=== PATIENT | male | born 1990 | race Caucasian/White ===

== ENCOUNTER 2019-12-21 18:54 | Emergency (ER) | payer OTHER ==
[2019-12-21 19:03] VITALS: RESP 18; TEMP 98
[2019-12-21] MEDS ORDERED: KETOROLAC 60 MG/2 ML VIAL IM STA (19:10)
--- NOTE | 2019-12-21 19:26 | XR ---
EXAMINATION TYPE: XR knee 4V RT DATE OF EXAM: 12/21/2019 COMPARISON: NONE HISTORY: Knee pain TECHNIQUE: 4 views FINDINGS: I see no fracture nor dislocation. Joint spaces are normal. There is no sign of knee joint effusion. IMPRESSION: Negative right knee exam.
--- NOTE | 2019-12-21 19:31 | ED ---
General Adult HPI - General Chief complaint: Extremity Injury, Lower Stated complaint: knee pain Time Seen by Provider: 12/21/19 19:04 Source: patient, RN notes reviewed, old records reviewed Mode of arrival: ambulatory Limitations: no limitations - History of Present Illness Initial comments: 29-year-old male patient presents to the chief complaint right knee injury. Patient reports that earlier today he was wrestling with friends. Patient reports that he bent down and went to strip picker one of his friends off the ground when he felt a pop in the medial aspect of his right knee. Patient currently has pain with ambulation. Reports that he did fall to the ground however did not hit his head or lose consciousness. Chief complaint is right knee pain in the medial aspect. Denies any other complaints. Denies any coronavirus contacts cough congestion fever or any other symptoms. Systemic: Pt denies fatigue, fever/chills, rash. Pt denies weakness, night sweats, weight loss. Neuro: Pt denies headache, visual disturbances, syncope or pre-syncope. HEENT: Pt denies ocular discharge or irritation, otalgia, rhinorrhea, pharyngitis or notable lymphadenopathy. Cardiopulmonary: Pt denies chest pain, SOB, heart palpitations, dyspnea on exertion. Abdominal/GI: Pt denies abdominal pain, n/v/d. : Pt denies dysuria, burning w/ urination, frequency/urgency. Denies new onset urinary or bowel incontinence. Neuro: Pt denies new onset weakness, paresthesias. - Related Data Previous Rx's Medication Instructions Recorded Ibuprofen [Motrin] 800 mg PO Q6HR PRN #20 tab 08/03/16 Allergies Allergy/AdvReac Type Severity Reaction Status Date / Time codeine AdvReac Nausea & Verified 12/21/19 19:03 Vomiting tramadol AdvReac Nausea & Verified 12/21/19 19:03 Vomiting Review of Systems ROS Statement: Those systems with pertinent positive or pertinent negative responses have been documented in the HPI. ROS Other: All systems not noted in ROS Statement are negative. 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 HEENT: NC/AT, trachea midline, neck supple, no lymphadenopathy. Posterior pharynx non erythematous, without exudates. External ears appear normal, without discharge. Mucous membranes moist. Eyes PERRLA, EOM intact. There is no scleral icterus. No pallor noted. Cardiopulmonary: RRR, no murmurs, rubs or gallops, no JVD noted. Lungs CTAB in anterior and posterior mitchell. No peripheral edema. Abdominal exam: Abdomen soft and non-distended. Abdomen non-tender to palpation in all 4 quadrants. Bowel sounds active in LLQ. No hepatosplenomegaly. No ecchymosis Neuro: CN II-XII grossly intact. No nuchal rigidity. No raccon eyes, no beltran sign, no hemotympanum. No cervical spinal tenderness. MSK: aspect of right knee mildly tender to palpation. No skin changes. Passive range of motion is intact. Neurovascularly intact. No other areas of tenderness on upper or lower extremities. No posterior calf tenderness bilaterally, homans sign negative bilaterally. Posterior tibialis and radial pulse +2 bilaterally. Sensation intact in upper and lower extremities. Limitations: no limitations Course Vital Signs 12/21/19 19:00 Temperature 98.0 F Pulse Rate 108 H Respiratory 18 Rate Blood Pressure 114/74 O2 Sat by Pulse 98 Oximetry Medical Decision Making - Medical Decision Making 29-year-old male patient with seizure evaluation of right knee sprain. Patient felt a pop in his knee while roughhousing with friends. Patient vital signs are stable, afebrile. Physical exam did display medial aspect right knee mildly tender to palpation. Has range of motion is intact. Neurovascularly intact. Plain film did not display acute process. Patient will be placed in knee immobilizer. He'll be advised not to bear weight and right lower extremity. We'll follow up with orthopedic consult tomorrow. Return to ER if condition wor sens. Case discussed with Dr. Lara. Disposition Clinical Impression: Right knee sprain Disposition: HOME SELF-CARE Instructions (If sedation given, give patient instructions): Knee Sprain (ED) Additional Instructions: Continue to wear knee immobilizer. Use crutches do not bear on right lower extremity. Follow with orthopedic consult tomorrow. Follow up with PCP tomorrow. Return to ER if condition worsens. Is patient prescribed a controlled substance at d/c from ED?: No Referrals: None,Stated [Primary Care Provider] - 1-2 days Med Pereira MD [STAFF PHYSICIAN] - 1-2 days
[2019-12-21 19:51] VITALS: BP 118/70; PULSE 96
== END 2019-12-21 19:51 | disposition home or self-care (01) ==
LOC: EC 18:54
DX: S83.91XA Sprain of unspecified site of right knee, initial encounter (principal); F17.200 Nicotine dependence, unspecified, uncomplicated; Z88.5 Allergy status to narcotic agent; Z53.29 Procedure and treatment not carried out because of patient's decision for other reasons; Y93.72 Activity, wrestling
CPT/HCPCS: 73564; 99284; L1830

== ENCOUNTER 2022-03-24 21:27 | Emergency (ER) | payer OTHER ==
[2022-03-24 22:32] VITALS: BP 146/92; PULSE 89; RESP 18; TEMP 98.1
--- NOTE | 2022-03-24 22:35 | ED ---
Lower Extremity Injury HPI - General Stated Complaint: R leg/possible torn ACL Time Seen by Provider: 03/24/22 21:44 Source: patient, RN notes reviewed Mode of arrival: ambulatory - History of Present Illness Initial Comments: This is a pleasant 31-year-old male with a history of asthma and previous history of right ACL tear. He jumped on her back of a pickup truck and landed on his left leg initially but then put his right foot down and twisted his right knee. He ended up landing on his right knee. Patient complaining of pain to the right knee which is exacerbated by movement and attempted ambulation. Does radiate proximally somewhat. Denies any other injury.. Pain intensity is 6-7 out of 10 intensity, alleviated somewhat by position and rest. Exacerbated by movement No headache, no fever or chills, no changes in vision or hearing, no sore throat or difficulty with speech, no neck pain, no chest pain or shortness of breath, no abdominal pain, no nausea or vomiting, no changes in urination or bowel movements, no numbness or tingling, no skin rashes or lesions. MD Complaint: knee injury - Related Data Previous Rx's Medication Instructions Recorded Ibuprofen [Motrin] 800 mg PO Q6HR PRN #20 tab 08/03/16 Allergies Allergy/AdvReac Type Severity Reaction Status Date / Time codeine AdvReac Nausea & Verified 03/24/22 22:27 Vomiting tramadol AdvReac Nausea & Verified 03/24/22 22:27 Vomiting Review of Systems ROS Statement: Those systems with pertinent positive or pertinent negative responses have been documented in the HPI. ROS Other: All systems not noted in ROS Statement are negative. 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 Absent: scleral icterus, conjunctival injection, periorbital swelling ENT exam: Present: normal exam, mucous membranes moist Neck exam: Present: normal inspection. Absent: tenderness, meningismus, lymphadenopathy Respiratory exam: Present: normal lung sounds bilaterally. Absent: respiratory distress, wheezes, rales, rhonchi, stridor, decreased breath sounds, prolonged expiratory Cardiovascular Exam: Present: regular rate, normal rhythm, normal heart sounds. Absent: systolic murmur, diastolic murmur, rubs, gallop, clicks GI/Abdominal exam: Present: soft. Absent: distended, tenderness, guarding, rebound, rigid Extremities exam: Present: full ROM, tenderness, normal capillary refill, other (Patient does have some laxity with regards to ACL on the right.). Absent: pedal edema, joint swelling, calf tenderness Right Hip exam: Present: normal inspection, full ROM. Absent: tenderness, swelling, abrasion Upper Leg exam: Present: normal inspection. Absent: tenderness, swelling Knee exam: Present: tenderness, swelling. Absent: full ROM, abrasion, laceration, ecchymosis, deformity, crepitus, dislocation, erythema, effusion, pain w/ pronation/supination, posterior draw sign, pain/laxity with valgus, pain/laxity with varus, full knee extension Lower Leg exam: Present: normal inspection. Absent: tenderness, swelling, abrasion Ankle exam: Present: normal inspection, full ROM. Absent: tenderness, swelling Foot/Toe exam: Present: normal inspection, full ROM. Absent: tenderness, swelling Back exam: Present: normal inspection Neurological exam: Present: alert, oriented X3, CN II-XII intact Psychiatric exam: Present: normal affect, normal mood Skin exam: Present: warm, dry, intact, normal color. Absent: rash Course Vital Signs 03/24/22 22:28 Temperature 98.1 F Pulse Rate 89 Respiratory 18 Rate Blood Pressure 146/92 O2 Sat by Pulse 98 Oximetry Medical Decision Making - Medical Decision Making Condition presents with isolated right knee injury. Patient does have some laxity ascertained with anterior drawer test on the right. There is no bony pathology as read by radiology. These films myself. Was applied. Distal neurovascular status intact both pre-and post-application. We'll have the patient follow-up with orthopedics. Anti-inflammatory medication and acetaminophen until then. Patient was told to return to the ER for any signs or symptoms worsen. Told to return immediately if any other problems arise. All questions answered. Treatment plan discussed. Patient in agreement Every effort has been made to ensure accuracy of this dictation. However, due to the limitations of electronic medical records and dictation devices, errors in charting still occur. Driver Education Instructor, Dr. Cantu - Radiology Data Radiology results: report reviewed, image reviewed Disposition Clinical Impression: Internal derangement of right knee Disposition: HOME SELF-CARE Condition: Stable Instructions (If sedation given, give patient instructions): Knee Sprain (ED) Additional Instructions: With a knee immobilizer as directed. Follow-up with orthopedics. Follow-up with your regular physician as directed. Return to the ER immediately if any symptoms worsen, new symptoms arise, or any other problems develop. Is patient prescribed a controlled substance at d/c from ED?: No Referrals: León Villanueva MD [Medical Doctor] - 03/28/22 Time of Disposition: 23:16
--- NOTE | 2022-03-24 22:55 | XR ---
EXAMINATION TYPE: XR knee complete RT DATE OF EXAM: 03/24/2022 COMPARISON: NONE HISTORY: Pain TECHNIQUE: 3 views FINDINGS: There is no fracture nor dislocation. Joint spaces are normal. No pathologic calcifications . No sign of joint effusion. IMPRESSION: Negative right knee exam. No fracture.
[2022-03-24] MEDS ORDERED: IBUPROFEN 600 MG STARTER PACK 4 TAB BTL PO STA (23:14)
[2022-03-24] MEDS ORDERED: ACETAMINOPHEN TAB 500 MG TAB PO STA (23:15)
== END 2022-03-24 23:47 | disposition home or self-care (01) ==
LOC: EC 21:27
DX: M23.91 Unspecified internal derangement of right knee (principal); J45.909 Unspecified asthma, uncomplicated; Z88.5 Allergy status to narcotic agent; Z88.6 Allergy status to analgesic agent; X50.1XXA Overexertion from prolonged static or awkward postures, initial encounter; Y93.39 Activity, other involving climbing, rappelling and jumping off
CPT/HCPCS: 73562; 99283; L1830